=== PATIENT | female | born 1965 | race Caucasian/White ===

== ENCOUNTER 2019-03-07 12:06 | Emergency (ER) | payer OTHER ==
[2019-03-07] MEDS ORDERED: Ketorolac 30 MG/ML SDV IVPUSH ONE (13:47)
[2019-03-07] MEDS ORDERED: Iopamidol 612 MG/ML 100 ML Bottle IVPUSH ONE (13:49)
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
[2019-03-07] MEDS: Sodium Chloride 0.9% 10 ML Syringe FLUSH PRN ×2 (14:10→14:19)
--- NOTE | 2019-03-07 14:50 | CT ---
CT facial bones Technique: Multiple axial sections were obtained through the facial structures. Intravenous contrast was utilized. Reconstructed coronal and sagittal images were reviewed. Findings: Scattered lymph nodes are seen which are felt to be within normal limits. Right and left globes are symmetric. No retrobulbar mass is seen. Parotid salivary and submandibular salivary glands appear within normal limits. Mild degenerative change is noted within the cervical spine. Evidence of previous surgery within both maxillary sinuses. Retention cyst is noted within the right maxillary sinus measuring 1.2 cm. Soft tissue swelling is seen within the left side of the face within the subcutaneous tissues. There appears to be scattered dental caries present. Slight lucency is seen around a tooth root on the left side of the mandible and difficult to exclude root abscess. No soft tissue abscess is seen. Impression: 1. Subcutaneous soft tissue swelling within the left face. This most likely represents superficial cellulitis. 2. Dental caries. Possible root abscess within a left mandibular tooth. 3. Incidental degenerative change within the cervical spine. Diagnostic code #3
[2019-03-07] MEDS ORDERED: cefTRIAXone 2 GM in Sodium Chloride 0.9% 100 ML IV STA (14:57)
== END 2019-03-07 16:05 | disposition home or self-care (01) ==
LOC: JD.ED 12:06
DX: K02.9 Dental caries, unspecified (principal); L03.211 Cellulitis of face; Z87.891 Personal history of nicotine dependence
CPT/HCPCS: 36415; 70487; 80053; 85007; 85027; 86140; 96365; 96375; 99284; J0696; J1885; J7030; Q9967

== ENCOUNTER 2019-06-29 09:53 | Emergency (ER) | payer OTHER ==
--- NOTE | 2019-06-29 11:04 | CR ---
Chest and right ribs: Frontal view of the chest is obtained as well as three views of the right ribs. Comparison: No previous right rib study or chest x-ray. Heart size and mediastinum are normal. Lungs are clear. Previous shoulder surgery is noted on the left side. Multiple old healed right-sided rib fractures are noted. Three cannulated screws across the sacroiliac joint within the pelvis. Mild degenerative change is seen within the spine. No acute osseous finding is appreciated. Impression: 1. Findings as noted above. Nothing acute is seen on frontal chest x-ray. 2. No definite acute rib fracture is appreciated. Diagnostic code #2 This report was dictated in [place] Standard Time
[2019-06-29] MEDS ORDERED: Ketorolac 60 MG/2 ML SDV IM ONE (11:09)
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
== END 2019-06-29 11:35 | disposition home or self-care (01) ==
LOC: JD.ED 09:53
DX: R07.89 Other chest pain (principal); J32.9 Chronic sinusitis, unspecified; Z79.899 Other long term (current) drug therapy
CPT/HCPCS: 71101; 96372; 99285; J1885

== ENCOUNTER 2021-08-27 01:21 | Emergency (ER) | payer SELFPAY | END 2021-08-27 02:41 | disposition home or self-care (01) | LOC: JD.ED 01:21 | DX: S63.502A Unspecified sprain of left wrist, initial encounter (principal); Z88.8 Allergy status to other drugs, medicaments and biological substances; W19.XXXA Unspecified fall, initial encounter | CPT/HCPCS: 73090-26-LT; 73090-LT; 73130-26-LT; 73130-LT; 99283 ==

== ENCOUNTER 2024-05-17 11:40 | Emergency (ER) | payer MEDICAID ==
[2024-05-17 13:07] LABS: BASOPHILS PERCENT AUTO 0.3 % (0.0-1.0); EOSINOPHILS ABSOLUTE AUTO 0.1 K/mm3 (0.0-0.4); EOSINOPHILS PERCENT AUTO 1.5 % (0.0-6.0); HEMATOCRIT 41.1 % (37.0-47.0); HEMOGLOBIN 13.3 gm/dl (12.0-16.0); IMMATURE GRAN ABSOLUTE AUTO 0.03 K/mm3 (0.00-0.05); IMMATURE GRAN PERCENT AUTO 0.3 % (0.0-0.4); LYMPHOCYTES PERCENT AUTO 21.9 % (24.0-44.0); MEAN CORPUSCULAR HGB CONC 32.4 g/dl (32.0-36.0); MEAN CORPUSCULAR VOLUME 89.5 fl (83.0-99.0); MEAN PLATELET VOLUME 8.9 fl (9.4-12.3); MONOCYTES ABSOLUTE AUTO 0.9 K/mm3 (0.0-0.8); MONOCYTES PERCENT AUTO 9.3 % (0.0-8.0); NEUTROPHILS ABSOLUTE AUTO 6.1 K/mm3 (1.8-7.7); NEUTROPHILS PERCENT AUTO 66.7 % (41.0-71.0); PLATELET COUNT,PLT 347 K/mm3 (150-400); RED BLOOD CELL COUNT 4.59 M/mm3 (4.10-5.30); WHITE BLOOD CELL COUNT,WBC 9.16 K/mm3 (3.9-11.3)
[2024-05-17] MEDS: Ketorolac 60 MG/2 ML SDV IM ONE (13:10)
[2024-05-17 13:35] LABS: A/G RATIO 0.9 (1-2); ALBUMIN 3.3 g/dl (3.4-5.0); BILIRUBIN TOTAL 0.3 mg/dL (0.2-1.0); BUN/CREATININE RATIO 17.1 (14-18); C-REACTIVE PROTEIN 1.2 mg/dL (<0.30); CALCIUM 8.7 mg/dL (8.5-10.1); CREATININE 0.7 mg/dL (0.55-1.02); EST CRCL DRUG DOSING (CG) 87.27 mL/min
[2024-05-17] MEDS: Sodium Chloride 0.9% 10 ML Syringe FLUSH ONE (14:47)
[2024-05-17 14:51] LABS: LACTIC ACID 0.7 mmol/L (0.4-2.0)
[2024-05-17] MEDS: Iopamidol 612 MG/ML 100 ML Bottle IVPUSH ONE (15:12)
[2024-05-17] MEDS: Magnesium Citrate Solution 296 ML Bottle PO ONE (16:28)
== END 2024-05-17 16:37 | disposition home or self-care (01) ==
LOC: JD.ED 11:40
DX: R07.81 Pleurodynia (principal); K59.00 Constipation, unspecified; I10 Essential (primary) hypertension; J45.909 Unspecified asthma, uncomplicated; F17.210 Nicotine dependence, cigarettes, uncomplicated; Z91.040 Latex allergy status; Z79.899 Other long term (current) drug therapy
CPT/HCPCS: 36415; 71101; 74177; 80053; 83605; 83690; 85025; 86140; 96372; 99284; A9270; J1885; J3490; Q9967